=== PATIENT | male | born 1995 | race Caucasian/White ===

== ENCOUNTER 2024-06-07 16:11 | Emergency (ER) | payer OTHER ==
[~2024-06-07] VITALS: Ht 170.2 cm; Wt 90.7 kg
[2024-06-07 16:20] VITALS: BP 133/78; PULSE 99; RESP 18; TEMP 98.8; O2SAT 97
[2024-06-07] MEDS ORDERED: IBUP-2213 PO (16:50)
[2024-06-07] MEDS ORDERED: [UNRECOGNIZED DRUG - CODE] PO (16:50)
[2024-06-07] MEDS ORDERED: CETI10SG1 PO (16:50)
[2024-06-07] MEDS ORDERED: ACET-2619 PO (16:50)
[2024-06-07 16:58] VITALS: BP 132/78; PULSE 97; RESP 20; TEMP 98.9; O2SAT 97
[2024-06-07 18:02] LABS: FLU A ANTIGEN negative (NEGATIVE); FLU B ANTIGEN NEGATIVE (NEGATIVE)
== END 2024-06-07 16:57 | disposition home or self-care (01) ==
LOC: MED 16:11
DX: J06.9 Acute upper respiratory infection, unspecified (principal); B97.89 Other viral agents as the cause of diseases classified elsewhere; Z20.822 Contact with and (suspected) exposure to COVID-19; Z79.899 Other long term (current) drug therapy
CPT/HCPCS: 99283